=== PATIENT | male | born 1995 | race Caucasian/White ===

== ENCOUNTER 2019-01-09 15:55 | Inpatient (IN) | payer OTHER ==
[~2019-01-09] VITALS: Ht 170.2 cm; Wt 62.1 kg
[2019-01-09 16:05] VITALS: BP 118/63
[2019-01-09] MEDS ORDERED: OxyCODONE HCL 10 MG IR TABLET PO PRN (18:30)
[2019-01-09] MEDS: OxyCODONE HCL 5 MG IR TABLET PO PRN (18:47)
[2019-01-09] MEDS ORDERED: ONDANSETRON HCL 4 MG TABLET PO PRN (19:15)
[2019-01-09] MEDS: ACETAMINOPHEN 325 MG TABLET PO SCH (19:27)
[2019-01-09] MEDS: DOCUSATE SODIUM 100 MG CAPSULE PO SCH (20:48)
[2019-01-09] MEDS: SENNA 187 MG TABLET PO SCH (20:48)
[2019-01-10] MEDS ORDERED: ACETAMINOPHEN 325 MG TABLET PO SCH
[2019-01-10 00:35] VITALS: BP 126/77
[2019-01-10] MEDS: ACETAMINOPHEN 325 MG TABLET PO SCH ×5 (00:35→20:10)
[2019-01-10 08:00] VITALS: BP 125/53
[2019-01-10 08:05] LABS: BASOPHILS % (AUTO) 0.5 % (0.0-2.0); EOSINOPHILS % (AUTO) 2.1 % (1.0-6.0); HEMATOCRIT 24.7 % (41-53); HEMOGLOBIN 8.5 g/dL (13.5-17.5); LYMPHOCYTES % (AUTO) 21.7 % (22.0-44.0); MEAN CORPUSCULAR HEMOGLOBIN 27.4 pg (26.0-34.0); MEAN CORPUSCULAR HGB CONC 34.6 G/dL (31.0-37.0); MEAN CORPUSCULAR VOLUME 79 fL (80-100); MONOCYTES # (AUTO) 0.3 K/uL (0.1-1.0); MONOCYTES % (AUTO) 7.3 % (2.0-9.0); NEUTROPHILS # (AUTO) 3.2 K/uL (1.8-7.7); NEUTROPHILS % (AUTO) 68.4 % (40.0-70.0); PLATELET COUNT (AUTO) 213 K/uL (150-450); RED BLOOD CELL COUNT(AUTO) 3.12 MIL/uL (4.50-5.90); RED CELL DISTRIBUTION WIDTH 13.3 % (11.5-14.5)
[2019-01-10 08:25] LABS: ALANINE AMINOTRANSFERASE 56 U/L (12-78); ALBUMIN 3.1 g/dL (3.4-5.0); ALKALINE PHOSPHATASE 38 U/L (46-116); ANION GAP 6 mmol/L (8-16); ASPARTATE AMINOTRANSFERASE 105 U/L (15-37); BILIRUBIN,TOTAL 0.6 mg/dL (0.1-1.0); CALCIUM, TOTAL 8.6 mg/dL (8.8-10.5); CARBON DIOXIDE 28 mmol/L (22-29); CHLORIDE 102 mmol/L (98-107); CREATININE 0.72 mg/dL (0.60-1.30); GLOMERULAR FILTR. RATE CALC > 60 mL/min (>60); GLUCOSE,RANDOM 102 mg/dL (70-110); POTASSIUM 4.2 mmol/L (3.5-5.1); SODIUM SERUM 136 mmol/L (136-145); TOTAL PROTEIN, SERUM 6.4 g/dL (6.4-8.2); UREA NITROGEN, BLOOD 17 mg/dL (7-18)
[2019-01-10] MEDS: ASPIRIN 325 MG EC TABLET PO SCH (08:25)
[2019-01-10] MEDS: DOCUSATE SODIUM 100 MG CAPSULE PO SCH ×2 (08:25→20:09)
[2019-01-10] MEDS: OxyCODONE HCL 5 MG IR TABLET PO PRN ×2 (11:22→19:06)
[2019-01-10 16:35] VITALS: BP 122/81
[2019-01-10] MEDS: FERROUS SULFATE 325 MG EC TABLET PO SCH (17:29)
[2019-01-10] MEDS: SENNA 187 MG TABLET PO SCH (20:09)
[2019-01-11 02:39] VITALS: BP 133/66
[2019-01-11] MEDS: OxyCODONE HCL 5 MG IR TABLET PO PRN (02:39)
[2019-01-11 08:31] VITALS: BP 125/75
[2019-01-11] MEDS: ASPIRIN 325 MG EC TABLET PO SCH (09:11)
[2019-01-11] MEDS: DOCUSATE SODIUM 100 MG CAPSULE PO SCH ×2 (09:11→20:44)
[2019-01-11] MEDS: FERROUS SULFATE 325 MG EC TABLET PO SCH (09:11)
[2019-01-11] MEDS: ACETAMINOPHEN 325 MG TABLET PO SCH (09:11)
[2019-01-11 15:28] VITALS: BP 124/61
[2019-01-11] MEDS: FERROUS GLUCONATE 324 MG TABLET PO SCH (17:06)
[2019-01-11] MEDS: SENNA 187 MG TABLET PO SCH (20:45)
[2019-01-11] MEDS: OxyCODONE HCL 20 MG ER TABLET PO SCH (20:45)
[2019-01-12] VITALS: BP 132/60
[2019-01-12] MEDS: PANTOPRAZOLE SODIUM 40 MG DR TABLET PO SCH (08:10)
[2019-01-12] MEDS: DOCUSATE SODIUM 100 MG CAPSULE PO SCH ×2 (08:10→21:16)
[2019-01-12] MEDS: FERROUS GLUCONATE 324 MG TABLET PO SCH ×2 (08:10→17:03)
[2019-01-12] MEDS: CHOLECALCIFEROL (VIT D3) 400 UNITS TABLET PO SCH (08:10)
[2019-01-12] MEDS: ASPIRIN 325 MG EC TABLET PO SCH (08:10)
[2019-01-12 08:11] VITALS: BP 124/65
[2019-01-12] MEDS: OxyCODONE HCL 5 MG IR TABLET PO PRN ×3 (08:11→19:27)
[2019-01-12] MEDS: OxyCODONE HCL 20 MG ER TABLET PO SCH ×2 (09:15→21:16)
[2019-01-12 15:57] VITALS: BP 121/62
[2019-01-12] MEDS: SENNA 187 MG TABLET PO SCH (21:16)
[2019-01-13 00:22] VITALS: BP 122/52
[2019-01-13 08:11] VITALS: BP 115/57
[2019-01-13] MEDS: OxyCODONE HCL 20 MG ER TABLET PO SCH ×2 (08:39→20:45)
[2019-01-13] MEDS: FERROUS GLUCONATE 324 MG TABLET PO SCH ×2 (08:39→17:46)
[2019-01-13] MEDS: ACETAMINOPHEN 325 MG TABLET PO PRN ×2 (08:39→15:23)
[2019-01-13] MEDS: CHOLECALCIFEROL (VIT D3) 400 UNITS TABLET PO SCH (08:39)
[2019-01-13] MEDS: PANTOPRAZOLE SODIUM 40 MG DR TABLET PO SCH (08:39)
[2019-01-13] MEDS: ASPIRIN 325 MG EC TABLET PO SCH (08:39)
[2019-01-13] MEDS: DOCUSATE SODIUM 100 MG CAPSULE PO SCH ×2 (08:39→20:44)
[2019-01-13 15:23] VITALS: BP 115/67
[2019-01-13] MEDS: OxyCODONE HCL 5 MG IR TABLET PO PRN (17:50)
[2019-01-13] MEDS: SENNA 187 MG TABLET PO SCH (20:44)
[2019-01-14 06:36] VITALS: BP 112/59
[2019-01-14] MEDS: OxyCODONE HCL 5 MG IR TABLET PO PRN ×2 (06:36→23:41)
[2019-01-14 08:00] VITALS: BP 121/64
[2019-01-14] MEDS: DOCUSATE SODIUM 100 MG CAPSULE PO SCH ×2 (09:05→20:47)
[2019-01-14] MEDS: CHOLECALCIFEROL (VIT D3) 400 UNITS TABLET PO SCH (09:05)
[2019-01-14] MEDS: PANTOPRAZOLE SODIUM 40 MG DR TABLET PO SCH (09:05)
[2019-01-14] MEDS: OxyCODONE HCL 20 MG ER TABLET PO SCH ×2 (09:05→20:48)
[2019-01-14] MEDS: FERROUS GLUCONATE 324 MG TABLET PO SCH ×2 (09:05→17:13)
[2019-01-14] MEDS: ASPIRIN 325 MG EC TABLET PO SCH (09:07)
[2019-01-14] MEDS: ACETAMINOPHEN 325 MG TABLET PO PRN ×2 (15:37→22:37)
[2019-01-14 15:38] VITALS: BP 95/55
[2019-01-14] MEDS: SENNA 187 MG TABLET PO SCH (20:47)
[2019-01-14 23:41] VITALS: BP 139/69
[2019-01-15 06:45] LABS: ALANINE AMINOTRANSFERASE 54 U/L (12-78); ALKALINE PHOSPHATASE 56 U/L (46-116); ANION GAP 6 mmol/L (8-16); ASPARTATE AMINOTRANSFERASE 47 U/L (15-37); BILIRUBIN,TOTAL 0.5 mg/dL (0.1-1.0); CALCIUM, TOTAL 8.5 mg/dL (8.8-10.5); CARBON DIOXIDE 29 mmol/L (22-29); CHLORIDE 102 mmol/L (98-107); CREATININE 0.76 mg/dL (0.60-1.30); GLOMERULAR FILTR. RATE CALC > 60 mL/min (>60); GLUCOSE,RANDOM 101 mg/dL (70-110); SODIUM SERUM 137 mmol/L (136-145); TOTAL PROTEIN, SERUM 6.7 g/dL (6.4-8.2); UREA NITROGEN, BLOOD 12 mg/dL (7-18)
[2019-01-15 07:00] VITALS: BP 108/59
[2019-01-15] MEDS: DOCUSATE SODIUM 100 MG CAPSULE PO SCH ×2 (08:37→21:08)
[2019-01-15] MEDS: ASPIRIN 325 MG EC TABLET PO SCH (08:37)
[2019-01-15] MEDS: FERROUS GLUCONATE 324 MG TABLET PO SCH ×2 (08:37→16:31)
[2019-01-15] MEDS: CHOLECALCIFEROL (VIT D3) 400 UNITS TABLET PO SCH (08:37)
[2019-01-15] MEDS: OxyCODONE HCL 20 MG ER TABLET PO SCH ×2 (08:37→21:08)
[2019-01-15] MEDS: PANTOPRAZOLE SODIUM 40 MG DR TABLET PO SCH (08:38)
[2019-01-15 16:20] VITALS: BP 104/52
[2019-01-15] MEDS: OxyCODONE HCL 5 MG IR TABLET PO PRN (16:31)
[2019-01-15 18:10] LABS: BASOPHILS % (AUTO) 0.8 % (0.0-2.0); EOSINOPHILS % (AUTO) 1.5 % (1.0-6.0); HEMOGLOBIN 8.6 g/dL (13.5-17.5); LYMPHOCYTES % (AUTO) 20.1 % (22.0-44.0); MEAN CORPUSCULAR HEMOGLOBIN 27.2 pg (26.0-34.0); MEAN CORPUSCULAR HGB CONC 34.3 G/dL (31.0-37.0); MEAN CORPUSCULAR VOLUME 79 fL (80-100); MONOCYTES # (AUTO) 0.3 K/uL (0.1-1.0); MONOCYTES % (AUTO) 5.8 % (2.0-9.0); NEUTROPHILS # (AUTO) 3.6 K/uL (1.8-7.7); NEUTROPHILS % (AUTO) 71.8 % (40.0-70.0); PLATELET COUNT (AUTO) 437 K/uL (150-450); RED BLOOD CELL COUNT(AUTO) 3.15 MIL/uL (4.50-5.90); RED CELL DISTRIBUTION WIDTH 13.4 % (11.5-14.5)
[2019-01-15] MEDS: SENNA 187 MG TABLET PO SCH (21:08)
[2019-01-15 23:30] VITALS: BP 138/55
[2019-01-16 08:00] VITALS: BP 126/79
[2019-01-16] MEDS: FERROUS GLUCONATE 324 MG TABLET PO SCH ×2 (08:17→16:26)
[2019-01-16] MEDS: ASPIRIN 325 MG EC TABLET PO SCH (08:17)
[2019-01-16] MEDS: PANTOPRAZOLE SODIUM 40 MG DR TABLET PO SCH (08:17)
[2019-01-16] MEDS: DOCUSATE SODIUM 100 MG CAPSULE PO SCH ×2 (08:17→20:48)
[2019-01-16] MEDS: CHOLECALCIFEROL (VIT D3) 400 UNITS TABLET PO SCH (08:17)
[2019-01-16] MEDS: OxyCODONE HCL 20 MG ER TABLET PO SCH ×2 (08:18→20:48)
[2019-01-16 15:52] VITALS: BP 116/62
[2019-01-16] MEDS: OxyCODONE HCL 5 MG IR TABLET PO PRN (15:55)
[2019-01-16 20:47] VITALS: BP 113/66
[2019-01-16] MEDS: SENNA 187 MG TABLET PO SCH (20:48)
[2019-01-17 06:00] VITALS: BP 144/73
[2019-01-17 08:01] VITALS: BP 117/74
[2019-01-17] MEDS: DOCUSATE SODIUM 100 MG CAPSULE PO SCH (08:30)
[2019-01-17] MEDS: FERROUS GLUCONATE 324 MG TABLET PO SCH (08:30)
[2019-01-17] MEDS: PANTOPRAZOLE SODIUM 40 MG DR TABLET PO SCH (08:30)
[2019-01-17] MEDS: OxyCODONE HCL 20 MG ER TABLET PO SCH (08:30)
[2019-01-17] MEDS: ASPIRIN 325 MG EC TABLET PO SCH (08:31)
[2019-01-17] MEDS: CHOLECALCIFEROL (VIT D3) 400 UNITS TABLET PO SCH (08:31)
[2019-01-17] MEDS ORDERED: FERG325 PO (09:34)
[2019-01-17] MEDS ORDERED: ASPI-1146 PO (09:34)
[2019-01-17] MEDS ORDERED: OXYC20 PO (09:34)
[2019-01-17] MEDS ORDERED: PANT40TA25 PO (09:34)
[2019-01-17] MEDS ORDERED: DOCU-275 PO (09:34)
[2019-01-17] MEDS ORDERED: VITAD400 PO (09:34)
== END 2019-01-17 13:10 | disposition home or self-care (01) | DRG 563 ==
LOC: 2WR 15:55
DX: S62.001A Unspecified fracture of navicular [scaphoid] bone of right wrist, initial encounter for closed fracture (principal); S52.392A Other fracture of shaft of radius, left arm, initial encounter for closed fracture; E46 Unspecified protein-calorie malnutrition; S52.121A Displaced fracture of head of right radius, initial encounter for closed fracture; S42.131A Displaced fracture of coracoid process, right shoulder, initial encounter for closed fracture; D64.9 Anemia, unspecified; K59.03 Drug induced constipation; K31.89 Other diseases of stomach and duodenum; E55.9 Vitamin D deficiency, unspecified; T40.2X5A Adverse effect of other opioids, initial encounter; Y92.89 Other specified places as the place of occurrence of the external cause; Z68.21 Body mass index [BMI] 21.0-21.9, adult; Z79.82 Long term (current) use of aspirin; Z79.899 Other long term (current) drug therapy; V29.9XXA Motorcycle rider (driver) (passenger) injured in unspecified traffic accident, initial encounter; Y92.481 Parking lot as the place of occurrence of the external cause
CPT/HCPCS: 87081; 97110; 97116; 97162; 97165; 97530; 97535; 99366